=== PATIENT | female | born 1965 | race Caucasian/White ===

== ENCOUNTER 2019-07-22 07:47 | Emergency (ER) | payer BC, OTHER ==
[~2019-07-22] VITALS: Ht 160 cm; Wt 68.0 kg
[~2019-07-22 07:47] MED LIST: DARVOCET-N 1001 EAC1; XANAX XR1 MG; ZOLOFT 50 MG TA50 M1 PO
[2019-07-22 08:54] LABS: ABSOLUTE NEUTROPHILS 2.8 thou/uL (1.4-8.2); BASOPHILS 0.9 % (0.0-2.0); EOSINOPHILS 1.9 % (0.0-3.0); HEMATOCRIT 34.3 % (37.0-47.0); HEMOGLOBIN 11.7 gm/dL (12.0-15.0); LYMPHOCYTES 36.4 % (24.0-44.0); MCH 28.8 pg (26.0-34.0); MCHC 34.1 g/dL (28.0-37.0); MCV 84.6 fL (80.0-100.0); MONOCYTES 7.7 % (1.0-8.0); PLATELET COUNT 295 thou/uL (150-400); POLYS 53.1 % (36.0-66.0); RBC 4.06 mil/uL (4.20-5.00); RDW 13.5 % (10.5-14.5); WBC 5.3 thou/uL (4.0-11.0)
[2019-07-22 08:58] LABS: ANION GAP 7 mmol/L (7-16); BUN 15 mg/dL (7-18); CALCIUM 9.5 mg/dL (8.5-10.1); CHLORIDE 101 mmol/L (98-107); CO2 28 mmol/L (21-32); CREATININE 0.8 mg/dL (0.6-1.0); GLUCOSE 99 mg/dL (74-106); POTASSIUM 3.9 mmol/L (3.5-5.1); SODIUM 136 mmol/L (136-145)
[2019-07-22 09:07] LABS: TROPONIN-I <0.06 ng/mL (<0.06)
[2019-07-22 09:45] VITALS: BP 142/65
--- NOTE | 2019-08-01 12:16 | EKG ---
[facility] [place] [address] ELECTROCARDIOGRAM REPORT Name: MUNA FULTON Room #: DEP [facility]#: [id number] Admission: 07/22/19 Attend Phys: Discharge: 07/22/19 Date of : 67 Report #: [id number] THIS REPORT FOR: cc: FAM - Family physician unknown FAM - Family physician unknown Lloyd Chapman MD ~ THIS REPORT FOR: //name// [facility] ED Test Date: 2019-07-22 Test Time: 08:32:18 Pat Name: MUNA FULTON Department: Room: Gender: F Toolmaker: : 1965 Requested By: Krishna Perry Order Number: [id number] MD: Lloyd Chapman Measurements Intervals [place] Rate: 64 P: 55 MT: 186 QRS: 11 QRSD: 100 T: 36 QT: 416 QTc: 430 Interpretive Statements Sinus rhythm Compared to ECG 05/24/2007 14:16:00 No significant changes Electronically Signed On 07-22-2019 14:05:21 CDT by Lloyd Chapman [email or web address] <ELECTRONICALLY SIGNED> By: Lloyd Chapman MD 07/22/19 1405 0832 08 Lloyd Chapman MD /[place]
== END 2019-07-22 09:45 | disposition home or self-care (01) ==
LOC: ER 07:47
PROVIDERS: Emergency Medicine
DX: R05 Cough (principal); R06.02 Shortness of breath; Z20.828 Contact with and (suspected) exposure to other viral communicable diseases; Z87.891 Personal history of nicotine dependence; Z88.0 Allergy status to penicillin

== ENCOUNTER → 2019-12-15 | Outpatient (CLI) | payer BC, OTHER ==
[2019-12-15 10:59] LABS: ABSOLUTE NEUTROPHILS 2.6 thou/uL (1.4-8.2); BASOPHILS 0.8 % (0.0-2.0); EOSINOPHILS 1.3 % (0.0-3.0); HEMATOCRIT 34.5 % (37.0-47.0); HEMOGLOBIN 11.6 gm/dL (12.0-15.0); LYMPHOCYTES 38.3 % (24.0-44.0); MCH 28.6 pg (26.0-34.0); MCHC 33.5 g/dL (28.0-37.0); MCV 85.4 fL (80.0-100.0); MONOCYTES 8.3 % (1.0-8.0); PLATELET COUNT 276 thou/uL (150-400); POLYS 51.3 % (36.0-66.0); RBC 4.04 mil/uL (4.20-5.00); RDW 13.7 % (10.5-14.5); WBC 5.1 thou/uL (4.0-11.0)
[2019-12-15 11:45] LABS: ALBUMIN 4.5 g/dL (3.4-5.0); ANION GAP 8 mmol/L (7-16); BUN 13 mg/dL (7-18); CALCIUM 9.6 mg/dL (8.5-10.1); CHLORIDE 101 mmol/L (98-107); CHOLESTEROL 226 mg/dL (<200); CO2 30 mmol/L (21-32); CREATININE 0.8 mg/dL (0.6-1.0); GLUCOSE 93 mg/dL (74-106); HDL CHOLESTEROL 67 mg/dL (>40); LDL CHOLESTEROL 128 mg/dL (<100); LIPASE 143 U/L (73-393); POTASSIUM 4.2 mmol/L (3.5-5.1); SGOT 17 U/L (15-37); SGPT 24 U/L (30-65); SODIUM 139 mmol/L (136-145); TC:HDL 3.4 Ratio (Not establshd); TOTAL BILIRUBIN 0.3 mg/dL (0.2-1.0); TRIGLYCERIDE 155 mg/dL (<150); VLDL 31 mg/dL (<40)
== END ==
LOC: ULTRA 10:21
PROVIDERS: ATTEND Family Medicine
DX: D64.9 Anemia, unspecified (principal); I10 Essential (primary) hypertension

== ENCOUNTER → 2019-12-19 | Outpatient (CLI) | payer BC | LOC: MRI 12:57 | PROVIDERS: ATTEND Family Medicine | DX: M51.16 Intervertebral disc disorders with radiculopathy, lumbar region (principal); M43.26 Fusion of spine, lumbar region; M48.061 Spinal stenosis, lumbar region without neurogenic claudication; R20.2 Paresthesia of skin; M47.26 Other spondylosis with radiculopathy, lumbar region ==

== ENCOUNTER → 2020-01-20 | Outpatient (CLI) | payer BC | LOC: RAD 16:27 | DX: M47.817 Spondylosis without myelopathy or radiculopathy, lumbosacral region (principal) ==

== ENCOUNTER → 2020-02-26 | Outpatient (CLI) | payer BC, OTHER ==
[~2020-02-26] MED LIST changes: +AMLODIPINE BESY10 MG PO; +ASA81BEC PO; +BIOTIN10000 MC1 PO; +CAYENNE450 MG PO; +CINNAMON500 MG PO; +CYCLOBENZAPRINE10 MG PO; +FAMOTIDINE20 MG PO; +FENOFIBRATE145 M1 PO; +GABAPENTIN600 M1 PO; +GARLIC1000 MG PO; +HYDROCHLOROTH12.5 M2 PO; +IBUPROFEN 800800 M1 PO; +MULTI VITAMIN1 EACH PO; +NASAL ALLERGY16.9 ML NASAL; +SERTRALINE HCL100 MG PO; +TURMERIC500 M2 PO; +VITAMIN C500 M1 PO; +VITAMIN D325 MC3 PO; +VITAMIN E200 UNI1 PO; -XANAX XR1 MG; +XANAX XR1 MG PO; +ZESTRIL20 MG PO; +ZOCOR 10 MG TAB10 M1 PO; +ZYRTEC10 M4 PO
== END ==
LOC: LAB 14:10
DX: Z01.812 Encounter for preprocedural laboratory examination (principal); Z20.828 Contact with and (suspected) exposure to other viral communicable diseases

== ENCOUNTER → 2020-03-17 | Outpatient (CLI) | payer BC, OTHER | LOC: RAD 10:13 | DX: Z98.890 Other specified postprocedural states (principal) ==

== ENCOUNTER → 2020-04-21 | Outpatient (CLI) | payer BC, OTHER | LOC: RAD 12:23 | PROVIDERS: ATTEND Physician Assistant | DX: M43.26 Fusion of spine, lumbar region (principal); Z98.890 Other specified postprocedural states ==

== ENCOUNTER 2020-06-10 10:30 | Inpatient (IN) | payer BC, OTHER ==
[~2020-06-10] VITALS: Ht 160 cm; Wt 72.1 kg
[2020-06-10 10:34] VITALS: BP 152/64
[2020-06-10 10:56] LABS: ABSOLUTE NEUTROPHILS 3.7 thou/uL (1.4-8.2); BASOPHILS 0.7 % (0.0-2.0); HEMATOCRIT 36.8 % (37.0-47.0); HEMOGLOBIN 12.3 gm/dL (12.0-15.0); LYMPHOCYTES 31.2 % (24.0-44.0); MCH 26.2 pg (26.0-34.0); MCHC 33.5 g/dL (28.0-37.0); MCV 78.2 fL (80.0-100.0); MONOCYTES 6.5 % (1.0-8.0); PLATELET COUNT 326 thou/uL (150-400); POLYS 60.6 % (36.0-66.0); RDW 15.1 % (10.5-14.5); WBC 6.1 thou/uL (4.0-11.0)
[2020-06-10 11:12] LABS: CALCIUM 10.5 mg/dL (8.5-10.1); CREATININE 0.9 mg/dL (0.6-1.0); POTASSIUM 3.9 mmol/L (3.5-5.1)
[2020-06-10 11:16] LABS: ALBUMIN 4.8 g/dL (3.4-5.0); TOTAL BILIRUBIN 0.3 mg/dL (0.2-1.0); TOTAL PROTEIN 8.8 g/dL (6.4-8.2)
[2020-06-10 14:36] VITALS: BP 156/75
[2020-06-10 14:55] VITALS: BP 148/76
[2020-06-10 15:46] VITALS: BP 126/66
[2020-06-10 16:10] VITALS: BP 126/66
[2020-06-10 19:08] VITALS: BP 116/59
[2020-06-11 03:52] VITALS: BP 116/56
[2020-06-11 05:27] LABS: CALCIUM 9.3 mg/dL (8.5-10.1); CREATININE 0.9 mg/dL (0.6-1.0); MAGNESIUM 1.9 mg/dL (1.8-2.4); POTASSIUM 3.6 mmol/L (3.5-5.1)
[2020-06-11 05:33] LABS: HEMATOCRIT 34.6 % (37.0-47.0); HEMOGLOBIN 11.5 gm/dL (12.0-15.0); MCH 26.3 pg (26.0-34.0); MCHC 33.2 g/dL (28.0-37.0); MCV 79.4 fL (80.0-100.0); RBC 4.36 mil/uL (4.20-5.00); RDW 14.9 % (10.5-14.5); WBC 3.6 thou/uL (4.0-11.0)
[2020-06-11 07:12] VITALS: BP 124/65
[2020-06-11 16:21] VITALS: BP 158/57
[2020-06-11 20:30] VITALS: BP 138/51
[2020-06-12 03:35] VITALS: BP 136/71
[2020-06-12 09:38] VITALS: BP 150/54
[2020-06-12 15:47] VITALS: BP 153/68
[2020-06-12 16:20] VITALS: BP 147/86
[2020-06-12 16:45] VITALS: BP 150/54
[2020-06-12 17:30] VITALS: BP 155/82
--- NOTE | 2020-06-14 06:49 | O ---
[facility] [place] [address] OPERATIVE REPORT Name: MUAN FULTON Room #: 441-P [facility] IN M.R.#: [id number] Admission: 06/10/20 Attend Phys: Roberto Pro MD Discharge: 06/12/20 Date of : 67 Report #: [id number] THIS REPORT FOR: cc: Chel Leon MD, Nora P. MD Patterson,Barry Vyas MD ~ DATE OF SERVICE: 06/12/2020 PREOPERATIVE DIAGNOSIS: Chronic cholecystitis. POSTOPERATIVE DIAGNOSIS: Chronic cholecystitis. OPERATION: Laparoscopic cholecystectomy. SURGEON: Barry Raines MD ANESTHESIA: General. ESTIMATED BLOOD LOSS: Minimal. SPECIMEN: Gallbladder. DESCRIPTION OF PROCEDURE: After informed consent was obtained, the patient was brought to the operating room and placed supine. SCDs were placed and working, preoperative antibiotics were administered, general anesthesia was induced. The abdomen was prepped and draped in the usual sterile fashion. A 10 mm incision was made above the umbilicus. Fascia was incised and a trocar was placed. Pneumoperitoneum was established. Three right upper quadrant 5 mm ports were placed. Gallbladder was grasped at the fundus and retracted cephalad. Infundibulum was grasped and retracted laterally. I dissected out the cystic duct and cystic artery. Cystic duct and artery were clipped and ligated leaving 2 clips on the remaining duct and 1 on the remaining artery. Gallbladder was then taken off the liver bed with electrocautery. It was placed into an Endopouch and removed. The fascia was then closed with a [id number]-qd-lospv 0 Vicryl. Skin was closed with 4-0 Monocryl. Incisions were sealed with Steri-Strips. COMPLICATIONS: None. DISPOSITION: The patient was taken to recovery in satisfactory condition. <ELECTRONICALLY SIGNED> By: Barry Raines MD 06/14/20 0649 1514 1620 Barry Raines MD /nt
== END 2020-06-12 17:58 | disposition home or self-care (01) | DRG 418 ==
LOC: ER 10:30 → EROBS 13:02 → 4S 13:02
PROVIDERS: Physician Assistant; ADMIT Internal Medicine; ATTEND Internal Medicine
PROC: 0FT44ZZ Resection of Gallbladder, Percutaneous Endoscopic Approach (ICD-10-PCS; principal; 2020-06-12)
DX: K81.1 Chronic cholecystitis (principal); E87.1 Hypo-osmolality and hyponatremia; E78.5 Hyperlipidemia, unspecified; I10 Essential (primary) hypertension; K21.9 Gastro-esophageal reflux disease without esophagitis; F32.9 Major depressive disorder, single episode, unspecified; F41.9 Anxiety disorder, unspecified; G89.29 Other chronic pain; M54.9 Dorsalgia, unspecified; Z20.822 Contact with and (suspected) exposure to COVID-19; Z79.82 Long term (current) use of aspirin; Z79.899 Other long term (current) drug therapy; Z90.710 Acquired absence of both cervix and uterus; Z90.49 Acquired absence of other specified parts of digestive tract; Z88.5 Allergy status to narcotic agent; Z88.8 Allergy status to other drugs, medicaments and biological substances; Z87.891 Personal history of nicotine dependence
CPT/HCPCS: 10195; 50010; 50411; 50555; 51489; 52265; 52266; 53307; 53312; 53314; 55245; 56462; 56525; 56526